=== PATIENT | female | born 1955 | race African-American/Black ===

== ENCOUNTER 2016-12-19 21:51 | Observation (INO) | payer OTHER ==
[~2016-12-19] VITALS: Ht 160 cm; Wt 89.2 kg
[~2016-12-19 21:51] MED LIST: ASPI81TA82 PO; FISH120014 PO; IBUP600T26 PO; LISI-363 PO; LISI40TA PO; LORTA5 PO; METF500 PO; METF500T PO; METH500T3 PO; MULTTAB67 PO; OMEG100046; OMEP20TA PO; PRAV20 PO; SYSTSOL7 EACH EYE; TIMO0.5S29 EACH EYE; [UNRECOGNIZED DRUG - OTHER] EACH EYE; [UNRECOGNIZED DRUG - OTHER] PO
[2016-12-19] MEDS ORDERED: SENNOSIDES 8.6 MG TAB PO PRN (22:45)
[2016-12-19] MEDS ORDERED: LACTULOSE SYRUP 20 GM/30 ML CUP PO PRN (22:45)
[2016-12-19] MEDS ORDERED: NALOXONE HCL 0.4 MG/ML AMP IV PUSH PRN (22:45)
[2016-12-19] MEDS ORDERED: SODIUM CHLORIDE 0.9% FLUSH 10 ML FLUSH IV FLUSH PRN (22:45)
[2016-12-19] MEDS ORDERED: ACETAMINOPHEN 325 MG TAB PO PRN (22:45)
[2016-12-19] MEDS ORDERED: BISACODYL 10 MG SUPP RECTAL PRN (22:45)
[2016-12-19] MEDS ORDERED: MAGNESIUM HYDROXIDE SUSP 30 ML CUP PO PRN (22:45)
[2016-12-19 23:07] VITALS: BP 140/72; PULSE 75; RESP 20; TEMP 96.2; O2SAT 96
--- NOTE | 2016-12-19 23:09 | HHI.HP ---
HPI Service [facility] Hospitalists Primary Care Physician Raina Davalos M.D. Admission Diagnosis dizziness,unsteady gait r/o cva Chief Complaint: diziness which began this afternoon and has persisted Travel History International Travel<30 Days: No Contact w/Intl Traveler <30 Da: No Traveled to Known Affected Are: No History of Present Illness 61 y/o female who has history of controlled diabetes on metformin and takes lisinopril for blood pressure was doing fine until afternoon 12/19/16 she ate apple and soon after that became dizzy and was unable to walk with feeling of passing out . She took her BP which was normal and did check her glucose which was non fasting 200 and took her metformin early ,she continued to be unable to walk due to the unsteadiness and went to [facility] ,the associated lightheadedness improved by sitting down she did feel her heart was racing. She denies fever ,chills,cough chest pain shortness of breath,abdominal pain or edema. In [facility] EKG was unremarkable but did have trace positive troponin level and had positive d diimer with negative chest and CTA scan. Also in ER given ASA and transferred to [place] for further work up. Review of Systems Constitutional: COMPLAINS OF: Dizziness Cardiovascular: COMPLAINS OF: Palpitations, Syncope Neurologic: COMPLAINS OF: Poor Balance Past Family Social History Past Medical History hypertension,dm,had normal stress test 04/26 and did have 2d echo will need to obtain record Past Surgical History gall bladder, hysterectomy Reported Medications lisinopril 40 metformin 500 was on asa in past and b [place] Allergies: Coded Allergies: No Known Allergies (Unverified , 12/19/16) Social History NS,ND Physical Exam Physical Exam GENERAL: This is a well-nourished, well-developed patient, in no apparent distress. SKIN: No rashes, ecchymoses or lesions. Cool and dry. HEAD: Atraumatic. Normocephalic. No temporal or scalp tenderness. EYES: Pupils equal round and reactive. Extraocular motions intact. No scleral icterus. No injection or drainage. ENT: Nose without bleeding, purulent drainage or septal hematoma. Throat without erythema, tonsillar hypertrophy or exudate. Uvula midline. Airway patent. NECK: Trachea midline. No JVD or lymphadenopathy. Supple, nontender, no meningeal signs. CARDIOVASCULAR: Regular rate and rhythm without murmurs, gallops, or rubs. RESPIRATORY: Clear to auscultation. Breath sounds equal bilaterally. No wheezes , rales, or rhonchi. GASTROINTESTINAL: Abdomen soft, non-tender, nondistended. No hepato-splenomegaly , or palpable masses. No guarding. MUSCULOSKELETAL: Extremities without clubbing, cyanosis, or edema. No joint tenderness, effusion, or edema noted. No calf tenderness. Negative Homans sign bilaterally. NEUROLOGICAL: Awake and alert. Cranial nerves II through XII intact. Motor and sensory grossly within normal limits. Five out of 5 muscle strength in all muscle groups. Normal speech. Dizziness on attempt to get up Laboratory cmp,cbc u/a normal troponin 0.09 Imaging cta negative for PE cxr negative Course in er given asa Caprini VTE Risk Assessment Caprini VTE Risk Assessment: Mod/High Risk (score >= 2) Caprini Risk Assessment Model Point Value = 1 Point Value = 2 Point Value = 3 Point Value = 5 Age 41-60 Minor surgery BMI > 25 kg/m2 Swollen legs Varicose veins or History of unexplained or recurrent spontaneous Oral contraceptives or hormone replacement Sepsis (< 1 month) Serious lung disease, including pneumonia (< 1 month) Abnormal pulmonary function Acute myocardial infarction Congestive heart failure (< 1 month) History of inflammatory bowel disease Medical patient at bed rest Age 61-74 Arthroscopic surgery Major open surgery (> 45 min) Laparoscopic surgery (> 45 min) Malignancy Confined to bed (> 72 hours) Immobilizing plaster cast Central venous access Age >= 75 History of VTE Family history of VTE Factor V Leiden Prothrombin [id number] Lupus anticoagulant Anticardiolipin antibodies Elevated serum homocysteine Heparin-induced thrombocytopenia Other congenital or acquired thrombophilia Stroke (< 1 month) Elective arthroplasty Hip, pelvis, or leg fracture Acute spinal cord injury (< 1 month) Prophylaxis Regimen Total Risk Factor Score Risk Level Prophylaxis Regimen 0-1 Low Early ambulation 2 Moderate Order ONE of the following: *Sequential Compression Device (SCD) *Heparin 5000 units SQ BID 3-4 Higher Order ONE of the following medications: *Heparin 5000 units SQ TID *Enoxaparin/Lovenox 40 mg SQ daily (WT < 150 kg, CrCl > 30 mL/min) *Enoxaparin/Lovenox 30 mg SQ daily (WT < 150 kg, CrCl > 10-29 mL/min) *Enoxaparin/Lovenox 30 mg SQ BID (WT < 150 kg, CrCl > 30 mL/min) AND/OR *Sequential Compression Device (SCD) 5 or more Highest Order ONE of the following medications: *Heparin 5000 units SQ TID (Preferred with Epidurals) *Enoxaparin/Lovenox 40 mg SQ daily (WT < 150 kg, CrCl > 30 mL/min) *Enoxaparin/Lovenox 30 mg SQ daily (WT < 150 kg, CrCl > 10-29 mL/min) *Enoxaparin/Lovenox 30 mg SQ BID (WT < 150 kg, CrCl > 30 mL/min) AND *Sequential Compression Device (SCD) Assessment and Plan Problem List: (1) Dizziness ICD Codes: R42 - Dizziness and giddiness Plan: occurred today and has persisted on sitting up -will get orthostatic pressures get MRI MRA brain carotids and nuero evaluations (2) Unsteady gait ICD Codes: R26.81 - Unsteadiness on feet Status: Acute Plan: work up as above will ask for neuro evaluation (3) Hypertension ICD Codes: I10 - Essential (primary) hypertension Status: Chronic Plan: continue current lisinopril (4) Diabetes ICD Codes: E11.9 - Type 2 diabetes mellitus without complications Status: Chronic Plan: accucheck 89 will follow levels continue metformin for now (5) Palpitation ICD Codes: R00.2 - Palpitations Assessment and Plan further plan as case and tests are reviewed she did have one episode of palpitation will monitor Code Status full Discussed Condition With patient and family Physician Certification 2 Midnight Certification Type: Admission for Inpatient Services Order for Inpatient Services The services are ordered in accordance with Medicare regulations or non- Medicare payer requirements, as applicable. In the case of services not specified as inpatient-only, they are appropriately provided as inpatient services in accordance with the 2-midnight benchmark. Estimated LOS (days): 3 3 days is the estimated time the patient will need to remain in the hospital, assuming treatment plan goals are met and no additional complications. Post-Hospital Plan: Not yet determined Problem Qualifiers (1) Hypertension: Qualified Codes: I10 - Essential (primary) hypertension (2) Diabetes: Steven Olmedo MD Dec 19, 2016 23:09
[2016-12-19] MEDS: ENOXAPARIN SODIUM 40 MG/0.4 ML SYRINGE SQ SCH (23:26)
[2016-12-19 23:57] VITALS: BP 161/86; PULSE 76; RESP 16; TEMP 97.5; O2SAT 97
[2016-12-20 04:50] VITALS: BP 146/70; PULSE 81; RESP 16; TEMP 97.8; O2SAT 98
[2016-12-20 08:00] VITALS: BP_SYST 162; BP_SYST 163; BP_DIAS 82; BP_DIAS 87; PULSE 77; RESP 20; TEMP 98.1; O2SAT 96
[2016-12-20 08:46] LABS: BICARBONATE 28.2 MEQ/L (21.0-32.0); POTASSIUM 3.8 MEQ/L (3.5-5.1)
[2016-12-20] MEDS ORDERED: metFORMIN HCL 500 MG TAB PO SCH (09:00)
[2016-12-20] MEDS: LISINOPRIL 20 MG TAB PO SCH (09:12)
[2016-12-20] MEDS: DOCUSATE SODIUM 50 MG/SENNA 8.6 MG TAB PO SCH ×2 (09:12→22:08)
[2016-12-20] MEDS: SODIUM CHLORIDE 0.9% FLUSH 10 ML FLUSH IV FLUSH SCH ×2 (09:13→22:08)
[2016-12-20] MEDS: MULTIVITAMIN TAB PO SCH (09:13)
[2016-12-20] MEDS: ASPIRIN 325 MG TAB PO SCH (09:13)
[2016-12-20 12:00] VITALS: BP 144/74; PULSE 78; RESP 20; TEMP 98.3; O2SAT 97
--- NOTE | 2016-12-20 12:01 | RADRPT ---
EXAM DATE/TIME: 12/20/2016 11:36 [facility] COMPARISON: No previous studies available for comparison. INDICATIONS : Dizzy and was unable to walk with feeling of passing out . MEDICAL HISTORY : Hypertension. Diabetes mellitus type 2. SURGICAL HISTORY : Hysterectomy. Rt shoulder ENCOUNTER: Subsequent ACUITY: 2 day PAIN SCORE: 0/10 LOCATION: cranial Please note a normal MRA of the brain does not entirely exclude the possibility of a small aneurysm, nor the possibility of distal intracranial vessel disease. TECHNIQUE: 3D time of flight MRA was performed. Source images, multiplanar STS MIP, and 3D volume MIP reconstru ctions were reviewed. FINDINGS: There is excellent visualization of the major intracranial arteries out to the second-order branch ve ssels. There is no evidence for aneurysm, vessel truncation or stenosis, and no evidence for vascula r malformation. CONCLUSION: Negative for major branch vessel occlusion. Zaid Cam MD FACR on December 20, 2016 at 11:59 Board Certified Radiologist. This report was verified electronically.
--- NOTE | 2016-12-20 12:50 | RADRPT ---
EXAM DATE/TIME: 12/20/2016 11:36 [facility] COMPARISON: No previous studies available for comparison. INDICATIONS : Dizzy and was unable to walk with feeling of passing out . MEDICAL HISTORY : Hypertension. Diabetes mellitus type 2. SURGICAL HISTORY : Hysterectomy. Rt shoulder ENCOUNTER: Subsequent ACUITY: 2 day PAIN SCORE: 0/10 LOCATION: cranial TECHNIQUE: Multiplanar, multisequence MRI of the brain was performed without contrast. FINDINGS: CEREBRUM: The ventricles are normal for age. No evidence of midline shift, mass lesion, hemorrhage or acute in farction. No extraaxial fluid collections are seen. The pituitary gland and suprasellar cistern are normal in configuration. WHITE MATTER: No significant signal abnormalities are seen in the white matter. POSTERIOR FOSSA: The cerebellum and brainstem are intact. The 4th ventricle is midline. The cerebellopontine angle is unremarkable. The cerebellar tonsils are normal in position. DIFFUSION IMAGING: No focal areas of restricted diffusion are seen. No evidence of acute infarction. EXTRACRANIAL: The visualized portions of the orbits and paranasal sinuses are unremarkable. CONCLUSION: Negative for acute process. Zaid Cam MD FACR on December 20, 2016 at 12:48 Board Certified Radiologist. This report was verified electronically.
--- NOTE | 2016-12-20 13:22 | RADRPT ---
EXAM DATE/TIME: 12/20/2016 11:36 [facility] COMPARISON: No previous studies available for comparison. INDICATIONS : Dizzy and was unable to walk with feeling of passing out . CONTRAST: 20 cc Omniscan (gadodiamide) IV MEDICAL HISTORY : Hypertension. Diabetes mellitus type 2. SURGICAL HISTORY : Hysterectomy. Rt shoulder ENCOUNTER: Subsequent ACUITY: 2 day PAIN SCORE: 0/10 LOCATION: cranial Percent stenosis is calculated using the diameter of the stenotic region over the diameter of the nor mal distal internal carotid artery. TECHNIQUE: Bolus infused MRA of the extracranial circulation was performed using a neurovascular coil. Post pro cessing was performed including rotating subvolume maximum intensity projections of each carotid lonny ry, rotating full volume maximum intensity projections of both carotid arteries, sagittal and coronal sliding thin slab reformations of each carotid artery, and left oblique sliding thin slab reformatio n through the aortic arch to include the origin of the arch branch vessels. FINDINGS: AORTIC ARCH: There is a three vessel origin of the great vessels from the aorta. No evidence of ostial narrowing. RIGHT CAROTID: The common carotid artery is intact. The carotid bulb has a normal configuration without ulceration or narrowing. The internal carotid artery lumen is smooth without stenosis. The external carotid ar zehra is intact. LEFT CAROTID: The common carotid artery is intact. The carotid bulb has a normal configuration without ulceration or narrowing. The internal carotid artery lumen is smooth without stenosis. The external carotid ar zehra is intact. VERTEBRALS: Right vertebral is small, ending in PICA in normal variant. Vascular artery is patent... CONCLUSION: Negative for hemodynamically significant stenosis. Zaid Cam MD FACR on December 20, 2016 at 13:15 Board Certified Radiologist. This report was verified electronically.
[2016-12-20] MEDS ORDERED: GADODIAMIDE PF 287 MG/ML 20 ML VIAL (for RAD MRI) IVCONTRAST ONE ×2 (13:40→15:24)
--- NOTE | 2016-12-20 14:14 | EKG ---
Date Performed: 12/20/2016 Time Performed: 10:27:12 PTAGE: 61 years EKG: Sinus rhythm . Lateral ST-T changes are nonspecific Borderline ECG NO PREVIOUS TRACING DOCTOR: Sascha Naranjo Interpretating Date/Time 12/20/2016 14:12:21
--- NOTE | 2016-12-20 15:08 | HHI.PR ---
Subjective Remarks I further discussed pt's presenting symptoms. Yesterday pt sought medical attention after episode of dizziness with near syncope. Pt relates that she also had palpitations with nausea. Pt denies vomiting. Pt denies chest pain. Per pt she has had these episodes of palpitations before. Pt denies SOB. Per pt last April Objective Vitals Vital Signs Date Time Temp Pulse Resp B/P (MAP) Pulse Ox O2 Delivery O2 Flow Rate FiO2 12/20/16 12:00 98.3 78 20 144/74 (97) 97 12/20/16 08:00 162/87 (112) 12/20/16 08:00 98.1 77 20 163/82 (109) 96 12/20/16 04:50 97.8 81 16 146/70 (95) 98 12/19/16 23:57 97.5 76 16 161/86 (111) 97 12/19/16 23:07 96.2 75 20 140/72 (94) 96 Result Diagram: 12/20/16 0718 Imaging cta negative for PE cxr negative Last Impressions Neck Magnetic Resonance Angiography 12/20/16 0600 Signed Impressions: Service Date/Time: Tuesday, December 20, 2016 11:36 - CONCLUSION: Negative for hemodynamically significant stenosis. Zaid Cam MD FACR Brain MRI 12/20/16 0600 Signed Impressions: Service Date/Time: Tuesday, December 20, 2016 11:36 - CONCLUSION: Negative for acute process. Zaid Cam MD FACR Head Magnetic Resonance Angiography 12/20/16 0000 Signed Impressions: Service Date/Time: Tuesday, December 20, 2016 11:36 - CONCLUSION: Negative for major branch vessel occlusion. Zaid Cam MD FACR Objective Remarks GENERAL: This is a well-nourished, well-developed patient, in no apparent distress. CARDIOVASCULAR: Regular rate and rhythm without murmurs, gallops, or rubs. RESPIRATORY: Clear to auscultation. Breath sounds equal bilaterally. No wheezes , rales, or rhonchi. GASTROINTESTINAL: Abdomen soft, non-tender, nondistended. Normal active bowel sounds MUSCULOSKELETAL: Extremities without clubbing, cyanosis, or edema. NEURO: Alert & Oriented x4 to person, place, time, situation. Moves all ext x4 A/P Problem List: (1) Dizziness ICD Codes: R42 - Dizziness and giddiness Plan: - MRI brain (12/19) --> NO acute findings - MRA brain (12/19) --> NO acute findings - MRA neck (12/19) --> NO acute findings - telemetry --> NSR - obtain echocardiogram - obtain holter - troponin 0.8, 0.8 - doubt AMI - Pt has NO c/o CP, but does c/o palpitations with nausea - will obtain Lexiscan, if negative then anticipate d/c to home 12/21 - echocardiogram (04/09/16) - LV hypertrophy - EF 60-65% - moderate MV regurg - per pt, she had stress test last winter, but did NOT see results in [facility] E[facility] (2) Unsteady gait ICD Codes: R26.81 - Unsteadiness on feet Status: Acute Plan: - see above (3) Hypertension ICD Codes: I10 - Essential (primary) hypertension Status: Chronic Plan: continue current lisinopril (4) Diabetes ICD Codes: E11.9 - Type 2 diabetes mellitus without complications Status: Chronic Plan: accucheck 89 will follow levels continue metformin for now (5) Palpitation ICD Codes: R00.2 - Palpitations Problem Qualifiers (1) Hypertension: Qualified Codes: I10 - Essential (primary) hypertension (2) Diabetes: Devante Holman DO Dec 20, 2016 15:08
[2016-12-20 16:00] VITALS: BP 155/66; PULSE 73; RESP 20; TEMP 98.8; O2SAT 97
[2016-12-20 18:17] LABS: AUTOMATED NEUTROPHIL # 1.4 TH/MM3 (1.8-7.7); BASOPHIL # 0.1 TH/MM3 (0-0.2); BASOPHIL % 1.3 % (0.0-2.0); EOSINOPHIL # 0.1 TH/MM3 (0-0.4); EOSINOPHIL % 1.9 % (0.0-4.0); HEMATOCRIT 36.5 % (35.0-46.0); HEMO FLAGS DIFF FINAL; LYMPH % 52.2 % (9.0-44.0); LYMPHOCYTE # 2.1 TH/MM3 (1.0-4.8); MEAN CELL VOLUME 83.9 FL (80.0-100.0); MEAN CORPUSCULAR HEMOGLOBIN 27.7 PG (27.0-34.0); MONO % 10.5 % (0.0-8.0); NEUT % 34.1 % (16.0-70.0); PLATELET COUNT 250 TH/MM3 (150-450); RED BLOOD COUNT 4.35 MIL/MM3 (4.00-5.30); RED CELL DISTRIBUTION WIDTH 14.8 % (11.6-17.2); WHITE BLOOD COUNT 4.1 TH/MM3 (4.0-11.0)
[2016-12-20 19:58] VITALS: BP 157/78; PULSE 90; RESP 18; TEMP 98.5; O2SAT 97
[2016-12-20 20:00] VITALS: PULSE 82
--- NOTE | 2016-12-20 20:12 | ECHRPT ---
Indication: syncope CONCLUSIONS The left ventricular systolic function is normal with an estimated ejection fraction in the range of 55-60%. Trace mitral valve regurgitation. There is trace tricuspid valve regurgitation. BP: 162 / 87 HR: 77 Rhythm: MEASUREMENTS (Male / Female) Normal Values Technical Quality: 2D ECHO LV Diastolic Diameter PLAX 4.0 cm 4.2 - 5.9 / 3.9 - 5.3 cm LV Systolic Diameter PLAX 3.0 cm IVS Diastolic Thickness 1.1 cm 0.6 - 1.0 / 0.6 - 0.9 cm LVPW Diastolic Thickness 0.7 cm 0.6 - 1.0 / 0.6 - 0.9 cm LV Relative Wall Thickness 0.4 RV Internal Dim ED PLAX 2.3 cm LA Systolic Diameter LX 3.6 cm 3.0 - 4.0 / 2.7 - 3.8 cm M-MODE Aortic Root Diameter MM 3.4 cm AV Cusp Separation MM 2.1 cm DOPPLER Mitral E Point Velocity 89.3 cm/s Mitral A Point Velocity 92.8 cm/s Mitral E to A Ratio 1.0 LV E' Lateral Velocity 7.1 cm/s Mitral E to LV E' Lateral Ratio 12.5 LV E' Septal Velocity 6.8 cm/s Mitral E to LV E' Septal Ratio 13.1 TR Peak Velocity 242.0 cm/s TR Peak Gradient 23.4 mmHg FINDINGS LEFT VENTRICLE Normal left ventricular size. Wall thickness is normal. The left ventricular systolic function is normal with an estimated ejection fraction in the range of 55-60%. Grossly normal wall motion. RIGHT VENTRICLE Normal right ventricular size. LEFT ATRIUM The left atrial size is normal. RIGHT ATRIUM The right atrial size is normal. ATRIAL SEPTUM Normal atrial septal thickness. AORTA The aortic root and proximal ascending aorta are normal in size on limited imaging. MITRAL VALVE Grossly normal mitral valve. No mitral valve stenosis. Trace mitral valve regurgitation. AORTIC VALVE Grossly normal aortic valve. No aortic valve stenosis or regurgitation. TRICUSPID VALVE Grossly normal tricuspid valve. There is trace tricuspid valve regurgitation. The estimated pulmonary arterial pressure is 23 mmHg. PULMONARY VALVE The pulmonary valve is not well visualized. VESSELS The inferior vena cava is normal in size. PERICARDIUM No pericardial effusion. Benigno Prieto DO (Electronically Signed) Final Date:20 December 2016 20:11
--- NOTE | 2016-12-20 21:17 | EKG ---
Date Performed: 12/20/2016 Time Performed: 18:23:34 PTAGE: 61 years EKG: Sinus rhythm NONSPECIFIC T-WAVE ABNORMALITY ABNORMAL ECG No significant change from prior electrocardiogram. PREVIOUS TRACING : 12/20/2016 10.27 DOCTOR: Berto Arriaga Interpretating Date/Time 12/20/2016 21:15:23
[2016-12-20] MEDS: ENOXAPARIN SODIUM 40 MG/0.4 ML SYRINGE SQ SCH (22:07)
[2016-12-21 00:55] VITALS: BP 148/67; PULSE 75; RESP 16; TEMP 98; O2SAT 99
[2016-12-21 04:35] VITALS: BP 132/76; PULSE 78; RESP 16; TEMP 98.3; O2SAT 98
[2016-12-21 08:00] VITALS: BP 154/80; PULSE 73; RESP 20; TEMP 97.9; O2SAT 97
[2016-12-21] MEDS ORDERED: INFLUENZA VIRUS VACCINE (QUADRIVALENT) 0.5 ML SYR IM ONE (10:00)
--- NOTE | 2016-12-21 10:51 | HHI.PR ---
Objective Vitals Vital Signs Date Time Temp Pulse Resp B/P (MAP) Pulse Ox O2 Delivery O2 Flow Rate FiO2 12/21/16 08:00 97.9 73 20 154/80 (104) 97 12/21/16 04:35 98.3 78 16 132/76 (94) 98 12/21/16 04:00 Room Air 12/21/16 00:55 98.0 75 16 148/67 (94) 99 12/21/16 00:00 Room Air 12/20/16 20:00 82 12/20/16 20:00 Room Air 12/20/16 19:58 98.5 90 18 157/78 (104) 97 12/20/16 16:00 98.8 73 20 155/66 (95) 97 12/20/16 12:00 98.3 78 20 144/74 (97) 97 Result Diagram: 12/20/16 1708 12/20/16 0718 Other Results Laboratory Tests Test 12/20/16 07:18 12/20/16 10:57 12/20/16 17:08 Blood Urea Nitrogen 8 MG/DL Creatinine 0.29 MG/DL Random Glucose 95 MG/DL Calcium Level 9.1 MG/DL Sodium Level 140 MEQ/L Potassium Level 3.8 MEQ/L Chloride Level 106 MEQ/L Carbon Dioxide Level 28.2 MEQ/L Anion Gap 6 MEQ/L Estimat Glomerular Filtration Rate 284 ML/MIN Troponin I 0.08 NG/ML 0.08 NG/ML 0.07 NG/ML White Blood Count 4.1 TH/MM3 Red Blood Count 4.35 MIL/MM3 Hemoglobin 12.1 GM/DL Hematocrit 36.5 % Mean Corpuscular Volume 83.9 FL Mean Corpuscular Hemoglobin 27.7 PG Mean Corpuscular Hemoglobin Concent 33.0 % Red Cell Distribution Width 14.8 % Platelet Count 250 TH/MM3 Mean Platelet Volume 9.7 FL Neutrophils (%) (Auto) 34.1 % Lymphocytes (%) (Auto) 52.2 % Monocytes (%) (Auto) 10.5 % Eosinophils (%) (Auto) 1.9 % Basophils (%) (Auto) 1.3 % Neutrophils # (Auto) 1.4 TH/MM3 Lymphocytes # (Auto) 2.1 TH/MM3 Monocytes # (Auto) 0.4 TH/MM3 Eosinophils # (Auto) 0.1 TH/MM3 Basophils # (Auto) 0.1 TH/MM3 CBC Comment DIFF FINAL Differential Comment Imaging cta negative for PE cxr negative Last Impressions Neck Magnetic Resonance Angiography 12/20/16 0600 Signed Impressions: Service Date/Time: Tuesday, December 20, 2016 11:36 - CONCLUSION: Negative for hemodynamically significant stenosis. Zaid Cam MD FACR Brain MRI 12/20/16 0600 Signed Impressions: Service Date/Time: Tuesday, December 20, 2016 11:36 - CONCLUSION: Negative for acute process. Zaid Cam MD FACR Head Magnetic Resonance Angiography 12/20/16 0000 Signed Impressions: Service Date/Time: Tuesday, December 20, 2016 11:36 - CONCLUSION: Negative for major branch vessel occlusion. Zaid Cam MD FACR Objective Remarks GENERAL: This is a well-nourished, well-developed patient, in no apparent distress. CARDIOVASCULAR: Regular rate and rhythm without murmurs, gallops, or rubs. RESPIRATORY: Clear to auscultation. Breath sounds equal bilaterally. No wheezes , rales, or rhonchi. GASTROINTESTINAL: Abdomen soft, non-tender, nondistended. Normal active bowel sounds MUSCULOSKELETAL: Extremities without clubbing, cyanosis, or edema. NEURO: Alert & Oriented x4 to person, place, time, situation. Moves all ext x4 A/P Problem List: (1) Dizziness ICD Codes: R42 - Dizziness and giddiness Plan: - MRI brain (12/19) --> NO acute findings - MRA brain (12/19) --> NO acute findings - MRA neck (12/19) --> NO acute findings - telemetry --> NSR - obtain echocardiogram - obtain holter - troponin 0.8, 0.8 - doubt AMI - Pt has NO c/o CP, but does c/o palpitations with nausea - will obtain Lexiscan, if negative then anticipate d/c to home later today - echocardiogram (04/09/16) - LV hypertrophy - EF 60-65% - moderate MV regurg - per pt, she had stress test last winter, but did NOT see results in [facility] EHR (2) Unsteady gait ICD Codes: R26.81 - Unsteadiness on feet Status: Acute Plan: - see above (3) Hypertension ICD Codes: I10 - Essential (primary) hypertension Status: Chronic Plan: continue current lisinopril (4) Diabetes ICD Codes: E11.9 - Type 2 diabetes mellitus without complications Status: Chronic Plan: accucheck 89 will follow levels continue metformin for now (5) Palpitation ICD Codes: R00.2 - Palpitations Problem Qualifiers (1) Hypertension: Qualified Codes: I10 - Essential (primary) hypertension (2) Diabetes: Maribell Rollins Dec 21, 2016 10:51
[2016-12-21] MEDS: MULTIVITAMIN TAB PO SCH (11:17)
[2016-12-21] MEDS: LISINOPRIL 20 MG TAB PO SCH (11:17)
[2016-12-21] MEDS: ASPIRIN 325 MG TAB PO SCH (11:18)
[2016-12-21] MEDS: SODIUM CHLORIDE 0.9% FLUSH 10 ML FLUSH IV FLUSH SCH (11:18)
[2016-12-21] MEDS: DOCUSATE SODIUM 50 MG/SENNA 8.6 MG TAB PO SCH (11:18)
[2016-12-21 12:00] VITALS: BP 150/79; PULSE 81; RESP 20; TEMP 98.1; O2SAT 97
[2016-12-21] MEDS ORDERED: REGADENOSON INJ 0.4 MG/5 ML SYR ONE (13:41)
--- NOTE | 2016-12-21 15:43 | RADRPT ---
EXAM DATE/TIME: 12/21/2016 13:11 [facility] COMPARISON: No previous studies available for comparison. INDICATIONS : Palpitations with near syncope. Angina. DOSE: 25.9 mCi Tc99m Myoview at stress. 8.1 mCi Tc99m Myoview at rest. 0.4 mg Lexiscan STRESS SYMPTOMS: Short of breath and abdominal pain. EJECTION FRACTION: > 70% MEDICAL HISTORY : Hypercholesterolemia. Gastroesophageal reflux disease. Hypertension. SURGICAL HISTORY : Hysterectomy. ENCOUNTER: Initial ACUITY: 1 day PAIN SCALE: 1/10 LOCATION: chest TECHNIQUE: The patient underwent pharmacologic stress with infusion of prescribed dose. Continuous ECG tracing was monitored during stress. Gated SPECT imaging was performed after stress and conventional SPECT i maging was performed at rest. The examination was performed on a SPECT/CT scanner, both attenuation and non-corrected datasets were reviewed. FINDINGS: DISTRIBUTION: The maximum perfused segment at stress is in the septal wall. PERFUSION STUDY: The pattern of perfusion at stress is within normal limits. GATED STUDY: There is intact wall motion and thickening without hypokinetic or dyskinetic segments. CONCLUSION: 1. Unremarkable myocardial perfusion scan. RISK CATEGORY: Low (<1% Annual Mortality Rate) Jonny Pascal MD on December 21, 2016 at 15:41 Board Certified Radiologist. This report was verified electronically.
[2016-12-21 16:00] VITALS: BP 153/77; PULSE 75; RESP 20; TEMP 98.1; O2SAT 97
--- NOTE | 2016-12-21 17:14 | HHI.DCPOC ---
Discharge Care Plan Diagnosis: (1) Dizziness (2) Palpitation (3) Hypertension (4) Diabetes Goals to Promote Your Health * To prevent worsening of your condition and complications * To maintain your health at the optimal level Directions to Meet Your Goals Take your medications as prescribed Follow your dietary instruction Follow activity as directed Keep your appointments as scheduled Take your immunizations and boosters as scheduled If your symptoms worsen call your PCP, if no PCP go to Urgent Care Center or Emergency Room Smoking is Dangerous to Your Health. Avoid second hand smoke Call the 24-hour hour crisis hotline for domestic abuse at Maribell Rollins Dec 21, 2016 17:14 Devante Holman DO Dec 22, 2016 01:08
--- NOTE | 2016-12-21 17:14 | HHI.DS ---
Discharge Summary Admission Date Dec 19, 2016 at 22:01 Discharge Date: Dec 21, 2016 Admitting Diagnosis dizziness,unsteady gait r/o cva (1) Dizziness ICD Codes: R42 - Dizziness and giddiness (2) Unsteady gait ICD Codes: R26.81 - Unsteadiness on feet Status: Acute (3) Hypertension ICD Codes: I10 - Essential (primary) hypertension Status: Chronic (4) Diabetes ICD Codes: E11.9 - Type 2 diabetes mellitus without complications Status: Chronic (5) Palpitation ICD Codes: R00.2 - Palpitations Consultants none Procedures none Brief History 61 y/o female who has history of controlled diabetes on metformin and takes lisinopril for blood pressure was doing fine until afternoon 12/19/16 she ate apple and soon after that became dizzy and was unable to walk with feeling of passing out . She took her BP which was normal and did check her glucose which was non fasting 200 and took her metformin early ,she continued to be unable to walk due to the unsteadiness and went to [place] [facility] ,the associated lightheadedness improved by sitting down she did feel her heart was racing. She denies fever ,chills,cough chest pain shortness of breath,abdominal pain or edema. In [facility] EKG was unremarkable but did have trace positive troponin level and had positive d diimer with negative chest and CTA scan. Also in ER given ASA and transferred to [place] for further work up. CBC/BMP: 12/20/16 1708 12/20/16 0718 Significant Findings Laboratory Tests Test 12/20/16 07:18 12/20/16 10:57 12/20/16 17:08 Creatinine 0.29 MG/DL (0.50-1.00) Troponin I 0.08 NG/ML (0.02-0.05) 0.08 NG/ML (0.02-0.05) 0.07 NG/ML (0.02-0.05) Lymphocytes (%) (Auto) 52.2 % (9.0-44.0) Monocytes (%) (Auto) 10.5 % (0.0-8.0) Neutrophils # (Auto) 1.4 TH/MM3 (1.8-7.7) Imaging Last Impressions Neck Magnetic Resonance Angiography 12/20/16 0600 Signed Impressions: Service Date/Time: Tuesday, December 20, 2016 11:36 - CONCLUSION: Negative for hemodynamically significant stenosis. Zaid Cam MD FACR Brain MRI 12/20/16 0600 Signed Impressions: Service Date/Time: Tuesday, December 20, 2016 11:36 - CONCLUSION: Negative for acute process. Zaid Cam MD FACR Head Magnetic Resonance Angiography 12/20/16 0000 Signed Impressions: Service Date/Time: Tuesday, December 20, 2016 11:36 - CONCLUSION: Negative for major branch vessel occlusion. Zaid Cam MD FACR PE at Discharge GENERAL: This is a well-nourished, well-developed patient, in no apparent distress. CARDIOVASCULAR: Regular rate and rhythm without murmurs, gallops, or rubs. RESPIRATORY: Clear to auscultation. Breath sounds equal bilaterally. No wheezes , rales, or rhonchi. GASTROINTESTINAL: Abdomen soft, non-tender, nondistended. Normal active bowel sounds MUSCULOSKELETAL: Extremities without clubbing, cyanosis, or edema. NEURO: Alert & Oriented x4 to person, place, time, situation. Moves all ext x4 Hospital Course Dizziness - MRI brain (12/19) --> NO acute findings - MRA brain (12/19) --> NO acute findings - MRA neck (12/19) --> NO acute findings - telemetry --> NSR with some episodes of ST - place holter monitor before patient is DC, patient to follow up with PCP for results - troponin 0.8, 0.8 - flat pattern doubt AMI - Pt has NO c/o CP, but does c/o palpitations with nausea - echocardiogram (04/09/16) - LV hypertrophy - EF 60-65% - moderate MV regurg - per pt, she had stress test last winter, but did NOT see results in [facility] EHR - nuclear stress test 12/21/16 results unremarkable myocardial perfusion scan - will obtain TSH and free T4 before patient is DC patient to follow up with PCP Unsteady gait - see above Hypertension continue current lisinopril Diabetes accucheck 89 will follow levels continue metformin for now Palpitation - Palpitations see above Patient stable will DC home Pt Condition on Discharge: Stable Discharge Disposition: Discharge Home Discharge Instructions DIET: Follow Instructions for: Diabetic Diet Activities you can perform: Regular-No Restrictions Follow up Referrals: PCP Follow-up - [address] Davalos Continued Medications: Lisinopril (Lisinopril) 40 Mg Tab 40 MG PO DAILY for Blood Pressure Management, #30 TAB 0 Refills Metformin (Metformin) 500 Mg Tab 500 MG PO DAILY for Blood Sugar Management, #30 TAB 0 Refills With a meal Multiple Vitamin (Multiple Vitamin) 1 Tab 1 TAB PO DAILY for Nutritional Supplement, TAB 0 Refills [place]-3/Dha/Epa/Fish Oil (Fish Oil 1,000 mg Softgel) 1,000 Mg (120 Mg-180 Mg) Capsule Additional Information Patient examined. Assessment and plan formulated with Maribell Rollins PA-C. I agree with the above. Maribell Rollins Dec 21, 2016 17:13 Devante Holman DO Dec 22, 2016 01:08
[2016-12-21 19:13] LABS: FREE T4 1.16 NG/DL (0.76-1.46)
--- NOTE | 2016-12-23 23:10 | HM ---
Date Performed: 12/21/2016 Time Performed: 16:58:00 HOOKUP DATE: 12/21/16 04:58:00 PM Sat ANALYSIS START TIME: 12/21/2016 5:03:00 PM ANALYSIS END TIME: 12/22/2016 5:06:59 PM PATIENT AGE: 61 PATIENT HEIGHT: 63 PATIENT WEIGHT: 196 DRUG LIST: room [facility]/d/c home PATIENT DIAGNOSIS: NEAR SYNCOPE ELEVATED TROPONIN TEST NARRATIVE: The patient's average heart rate was 82 BPM. Heart rates greater than 120 B PM were noted 2% of the time. No episodes of bradycardia were noted. No pauses exceeding 2.0 sec onds were noted. 7 ventricular ectopics, which represented < 1% of the total beat count, were not ed. The highest ventricular ectopic frequency occurred from 03:00 PM to 04:00 PM Sun. During this t ramon 2 VE(s) occurred. Ventricular ectopics were observed as 7 isolated beat(s) only. No couplets or runs were noted. 5 supraventricular ectopics, which represented < 1% of the total beat count, we re noted. The highest supraventricular ectopic frequency occurred from 01:00 AM to 02:00 AM Sun. Du ring this time 3 SVE(s) occurred. Multiple episodes of ST depression (defined as -1.0 mm or more) were noted in channel 1. The maximum depression of -2.7 mm occurred at 07:33:08 PM Sat. Multiple episodes of ST depression (defined as -1.0 mm or more) were noted in channel 2. The maximum depress ion of -1.8 mm occurred at 07:37:54 PM Sat. No episodes of ST depression (defined as -1.0 mm or more ) were noted in channel 3. TEST INTERPRETATION: Sinus rhythm Rare PACs and PVCs Signed by : Sergio Marino
== END 2016-12-21 20:42 | disposition home or self-care (01) ==
LOC: NEDDLT 21:51 → N04B 22:01 → UNDOADMIN 22:01 → INTOOBSV 12-20 15:01 → N04B 12-20 15:01 → UNDODISIN 12-21 20:42
PROVIDERS: ADMIT Hospitalist; ATTEND Hospitalist
DX: R42 Dizziness and giddiness (principal); I10 Essential (primary) hypertension; R00.2 Palpitations; E11.9 Type 2 diabetes mellitus without complications; R79.89 Other specified abnormal findings of blood chemistry; R00.0 Tachycardia, unspecified; R94.31 Abnormal electrocardiogram [ECG] [EKG]; Z79.84 Long term (current) use of oral hypoglycemic drugs; R26.2 Difficulty in walking, not elsewhere classified; Z23 Encounter for immunization
CPT/HCPCS: 70450; 70544; 70548; 70551; 71010; 71275; 78452; 80048; 80053; 81001; 82550; 82948; 83735; 84439; 84443; 84484; 85025; 85379; 85610; 85730; 93005; 93017; 93225; 93226; 93306; 96360; 99285; A9502; A9579; G0008; G0378; J1650; J2785; J7030; Q2038; Q9967; 90471; 90686

== ENCOUNTER 2018-04-29 10:27 | Observation (INO) ==
[2018-04-29] MEDS ORDERED: Sodium Chlor 0.9% Inj 500 ML IV.CONT ONE (15:15)
[2018-04-29] MEDS ORDERED: Metoprolol Tartrate 25 MG Tablet PO ONE (15:15)
[2018-04-29] MEDS ORDERED: Chlorhexidine Gluconate 2% 1 Pack (2 Cloths) TOPICAL ONE (15:15)
[2018-04-29] MEDS ORDERED: *Ondansetron Inj 4 MG/2 ML Vial PERIprocedural Use ONLY ONE (19:52)
[2018-04-29] MEDS ORDERED: Bupivacaine/Epinephrine PF Inj 0.5% 30 ML Vial ONE (21:04)
[2018-04-29] MEDS ORDERED: Succinylcholine Inj 100 MG/5 ML Syringe IV.PUSH ONE (21:13)
[2018-04-29] MEDS ORDERED: Phenylephrine/NS 1000 MCG/10ML Syringe IV.PUSH ONE (21:13)
[2018-04-29] MEDS ORDERED: Neostigmine Inj 5 MG/5 ML Syringe IV.PUSH ONE (21:13)
[2018-04-29] MEDS ORDERED: Glycopyrrolate Inj 1 MG/5 ML Syringe IV.PUSH ONE (21:13)
[2018-04-29] MEDS ORDERED: Piperacil/Tazo 3.375 GM Premix 3.375 GM/50 ML PIGGYBACK IV.SIG ONE (21:50)
[2018-04-29] MEDS ORDERED: fentaNYL Citrate Inj 100 MCG/2 ML Ampul ONE ×2 (21:58→22:40)
[2018-04-29] MEDS ORDERED: Bisacodyl 10 MG Supp RECTAL PRN (22:14)
[2018-04-29] MEDS ORDERED: Ketorolac Inj 30 MG/ML (IVP) Vial IV.PUSH PRN (22:14)
[2018-04-29] MEDS ORDERED: Promethazine 25 MG Supp RECTAL PRN (22:14)
[2018-04-29] MEDS ORDERED: Post-op Orders (for Pharmacy) OTHER ONE (22:14)
[2018-04-29] MEDS ORDERED: Sugammadex Inj 200 MG/2 ML Vial IV.PUSH ONE (22:24)
[2018-04-29] MEDS ORDERED: Sodium Chloride 0.9% 2 ML Flush PRN IV.FLUSH (22:32)
[2018-04-29] MEDS ORDERED: Morphine Inj 4 MG/ML Vial ONE (22:40)
--- NOTE | 2018-04-29 22:48 | MP ---
cc: Deyvi Muro MD DATE OF OPERATION: 04/29/2018 PREOPERATIVE DIAGNOSIS: Acute appendicitis. POSTOPERATIVE DIAGNOSIS: Acute appendicitis. PROCEDURE PERFORMED: Laparoscopic appendectomy. SURGEON: Deyvi Muro MD ANESTHESIA: General endotracheal anesthesia. ESTIMATED BLOOD LOSS: Scant. FINDINGS: Inflamed appendix with exudate surrounding the tip, adhesions of omentum to the midline. SPECIMENS: Appendix. COMPLICATIONS: None. OPERATION: The patient was brought to the operating room, placed on the operating table in supine position. Bilateral sequential inflation devices placed on the lower extremities, general anesthesia instituted, antibiotics initiated. Abdomen was prepped and draped sterilely. A 5 mm port was placed in the left upper quadrant under direct vision. Using the Optiview port, a point in the left upper quadrant anesthetized with 0.25% Marcaine with epinephrine. Skin incision was made. A 5 mm Optiview port placed under direct vision, pneumoperitoneum WAS created. Under direct vision, a 5 mm suprapubic port was placed and a 12 mm infraumbilical midline port placed. Prior to placement of all ports, the skin and peritoneum were anesthetized with 0.25% Marcaine with epinephrine. The patient was placed in Trendelenburg position. Findings as above. The tip of the appendix was dissected out from the peritoneum. It was brought into view. The mesoappendix was using Harmonic scalpel, dividing the appendiceal vessels. Appendix was mobilized to its base. The endovascular stapler was then used to amputate the appendix at its base. There was bleeding at the staple line. This was controlled with 5 mm Hemoclips. The appendix was removed from the peritoneal cavity in an Endo pouch through the 12 mm port site. The peritoneal cavity was irrigated with copious amounts of saline. Staple line was inspected, appeared to be intact. The fascia at the 12 mm port site was approximated with 0 Vicryl suture using a Elder-Judi fascial closure device. CO2 released. All additional port were removed. All skin incisions closed with 4-0 Monocryl. The abdominal wall was cleaned and a sterile dressing were placed. The patient was awakened and taken to the recovery room. MD RENATA Tejeda/aracely , 10:22 PM , 10:28 PM
--- NOTE | 2018-04-29 22:56 | MH ---
cc: Deyvi Muro MD DATE OF ADMISSION: 04/29/2018 HISTORY OF PRESENT ILLNESS: This is a 62-year-old female who presented to the emergency room in [place] with a complaint of abdominal pain. The pain started the day before presentation. The patient states the pain became severe and she passed out. As a result, she presented to the emergency room for evaluation. The patient states the pain started in the left side of her abdomen then became generalized and localized to the right lower quadrant. She has had no fevers. She did have nausea without emesis. She denies urinary symptoms. She denies chest pains or shortness of breath. PAST MEDICAL HISTORY: Significant for hypertension and type 2 diabetes. PAST SURGICAL HISTORY: Significant for cholecystectomy, hysterectomy, knee surgery and shoulder surgery. ALLERGIES: SHE HAS NO KNOWN DRUG ALLERGIES. MEDICATIONS: To be obtained from her medical records. SOCIAL HISTORY: She does not smoke. FAMILY HISTORY: Noncontributory. REVIEW OF SYSTEMS: Significant for above. All other 10-point review of systems is negative. PHYSICAL EXAMINATION: GENERAL: She is lying in bed in no acute distress. HEENT: Her pupils are equal and reactive. NECK: Trachea is midline. LUNGS: Clear. CARDIOVASCULAR: Regular. GASTROINTESTINAL: Soft. Positive tenderness in the lower abdomen, greatest in the right lower quadrant. She had an infraumbilical midline scar. Right upper quadrant subcostal scar. No hernia palpated. MUSCULOSKELETAL: No deformities. NEUROLOGIC: Nonfocal. LABORATORY DATA: CAT scan of the abdomen and pelvis revealed a dilated appendix. White blood cell count 11. ASSESSMENT: This is a patient with acute appendicitis. PLAN: For laparoscopic appendectomy. Risks and benefits explained to include, but not exclusive to infection, bleeding, bowel injury, bowel, bladder injury, ureter injury. Technical aspects explained as well as ruy- and postoperative course. The patient verbalized understanding. Consent obtained. Deyvi Muro MD JLS/aracely , 10:25 PM , 10:32 PM
[2018-04-30] MEDS: Sod Chloride 0.9% Inj 1,000 ML IV.CONT SCH ×2 (00:01→08:39)
[2018-04-30 05:11] LABS: Baso % (Auto) 0.2 % (0.0-2.0); Hematocrit 33.1 % (35.0-46.0); Lymph # (Auto) 0.8 th/mm3 (1.0-4.8); Lymph % (Auto) 6.2 % (9.0-44.0); Mean Corpuscular HGB Conc 33.1 % (32.0-36.0); Mean Corpuscular Hemoglobin 27.5 pg (27.0-34.0); Mean Corpuscular Volume 82.9 fL (80.0-100.0); Mean Platelet Volume 8.5 fL (7.0-11.0); Mono # (Auto) 0.3 th/mm3 (0.0-0.9); Mono % (Auto) 2.2 % (0.0-8.0); Neut % (Auto) 91.4 % (16.0-70.0); Platelet Count 255 th/mm3 (150-450); Red Blood Count 3.99 mil/mm3 (4.00-5.30); White Blood Count 13.1 th/mm3 (4.0-11.0)
[2018-04-30] MEDS: Insulin NovoLIN Regular Correctional Sugar Inj SQ SCH ×2 (08:39→12:57)
[2018-04-30 08:44] VITALS: PULSE 86
[2018-04-30] MEDS ORDERED: Sodium Chloride 0.9% 2 ML Flush BID IV.FLUSH SCH (09:00)
[2018-04-30] MEDS ORDERED: Lisinopril 20 MG Tablet PO SCH (09:00)
[2018-04-30] MEDS ORDERED: Senna/Docusate Sodium 8.6/50 MG Tablet PO SCH (09:00)
[2018-04-30] MEDS ORDERED: amLODIPine 10 MG Tablet PO SCH (09:00)
[2018-04-30] MEDS ORDERED: Simethicone 80 MG Chew Tablet PO PRN (09:53)
--- NOTE | 2018-04-30 10:03 | P.PNGS ---
Subjective Patient reports: tolerating liquids well, voiding w/o difficulty, no flatus, no bowel movement (Pt denies chest pain palpitations or SOB. Has not yet ambulated. ) Physical Exam Vital signs: Vital Signs 04/29/18 15:15 04/29/18 19:59 04/29/18 22:30 Temperature 99.1 F 100.1 F H 98.8 F Pulse Rate 96 H 104 H 88 Respiratory Rate 16 20 18 Blood Pressure 144/65 H 142/62 H 138/65 Pulse Oximetry 100 96 99 04/29/18 22:45 04/29/18 23:00 04/30/18 00:00 Temperature 100.1 F H 100.1 F H 98.2 F Pulse Rate 92 H 95 H 93 H Respiratory Rate 20 20 18 Blood Pressure 130/56 L 115/57 L 126/57 L Pulse Oximetry 98 98 96 04/30/18 04:00 04/30/18 04:38 04/30/18 08:00 Temperature 98.4 F 97.7 F Pulse Rate 85 86 Respiratory Rate 17 20 19 Blood Pressure 115/55 L 115/60 Pulse Oximetry 95 94 L Intake & Output 04/29/18 04/30/18 04/30/18 18:59 06:59 18:59 Intake Total 970 / 970 Output Total 5 / 5 Balance 965 / 965 Weight 85.6 kg 85.4 kg Intake: IV 50 / 50 Zosyn 3.375 GM Premix 3.375 gm 50 / 50 In 50 ml @ 100 mls/hr IV.SIG ONCE ONE Rx#:[id number] Oral 120 / 120 Anesthesia Amount 800 / 800 Output: Estimated Blood Loss 5 / 5 Other: # Voids 1 # Bowel Movements 0 Weight On Admission 85.6 kg Narrative: GENERAL: SKIN: Warm and dry. HEAD: Normocephalic. EYES: No scleral icterus. No injection or drainage. NECK: Supple, trachea midline. No JVD or lymphadenopathy. CARDIOVASCULAR: Regular rate and rhythm without murmurs, gallops, or rubs. RESPIRATORY: Breath sounds equal bilaterally. No accessory muscle use. GASTROINTESTINAL: Abdomen soft, normal post operative tenderness, laparoscopic sites WNL, mildly distended. MUSCULOSKELETAL: No cyanosis, or edema. BACK: Nontender without obvious deformity. No CVA tenderness. Results - Labs 04/30/18 05:00 Laboratory Results - last 24 hr 04/30/18 04/30/18 05:00 08:16 WBC 13.1 H RBC 3.99 L Hgb 11.0 L Hct 33.1 L MCV 82.9 MCH 27.5 MCHC 33.1 RDW 15.0 Plt Count 255 MPV 8.5 Neut % (Auto) 91.4 H Lymph % (Auto) 6.2 L [place] % (Auto) 2.2 Eos % (Auto) 0.0 Baso % (Auto) 0.2 Neut # (Auto) 12.0 H Lymph # (Auto) 0.8 L [place] # (Auto) 0.3 Eos # (Auto) 0.0 Baso # (Auto) 0.0 WBC Differential . Differential Comment Auto diff final POC Glucose 126 H Assessment and Plan - Assessment (1) S/P laparoscopic appendectomy Code(s): Z90.49 - Acquired absence of other specified parts of digestive tract Status: Acute - Plan POD#1 S/P laparoscopic appendectomy Tolerating clear liquid well Ambulate ad erika IS Advance diet Anticipate D/C home today if continuing to do well. Code Status: full Discussed Condition With: patient, daughter, surgeon.
[2018-04-30 12:56] VITALS: BP 127/66; RESP 18; TEMP 97.6; O2SAT 97
== END 2018-04-30 14:42 | disposition home or self-care (01) ==
LOC: NEDDLT 10:27 → HSDI 14:41 → INTOOBSV 14:41 → N07 23:38
PROVIDERS: ADMIT Surgery; ATTEND Surgery
PROC: LAPAPPY (ICD-10-PCS; 2018-04-29 21:13)
CPT/HCPCS: 74177; 80053; 81001; 82948; 82962; 83605; 83690; 83735; 84484; 85025; 85610; 85730; 87040; 88304; 90761; 90765; 90775; 93005; 96361; 96365; 96375; 99285; G0378; J0330; J1100; J2250; J2270; J2370; J2405; J2543; J2704; J2710; J3010; J7030; J7120; Q9967